=== PATIENT | female | born 1955 | race Caucasian/White ===

== ENCOUNTER 2019-03-20 16:16 | Inpatient (IN) | payer OTHER, BC ==
[~2019-03-20] VITALS: Ht 162.6 cm; Wt 83.9 kg
[2019-03-20 16:17] VITALS: BP 131/72
[2019-03-20 17:34] LABS: HEMATOCRIT 40.3 % (37.0-47.0); HEMOGLOBIN 13.8 gm/dL (12.0-15.0); MCH 30.8 pg (26.0-34.0); MCHC 34.3 g/dL (28.0-37.0); MCV 89.8 fL (80.0-100.0); RBC 4.49 mil/uL (4.20-5.00); RDW 13.9 % (10.5-14.5); WBC 8.4 thou/uL (4.0-11.0)
[2019-03-20 17:46] LABS: CALCIUM 9.8 mg/dL (8.5-10.1); CREATININE 0.9 mg/dL (0.6-1.0); POTASSIUM 4.1 mmol/L (3.5-5.1)
[2019-03-20] MEDS ORDERED: VALIUM5 MG PO (17:55)
[2019-03-20 18:36] VITALS: BP 134/74
[2019-03-20 18:53] VITALS: BP 143/68
[2019-03-20 21:29] VITALS: BP 121/68
[2019-03-21 04:10] VITALS: BP 118/64
[2019-03-21 05:57] LABS: ABSOLUTE NEUTROPHILS 6.9 thou/uL (1.4-8.2); BASOPHILS 0.5 % (0.0-2.0); HEMATOCRIT 38.6 % (37.0-47.0); LYMPHOCYTES 19.3 % (24.0-44.0); MCH 30.5 pg (26.0-34.0); MCHC 33.6 g/dL (28.0-37.0); MCV 90.8 fL (80.0-100.0); MONOCYTES 7.9 % (1.0-8.0); PLATELET COUNT 216 thou/uL (150-400); POLYS 70.3 % (36.0-66.0); RBC 4.25 mil/uL (4.20-5.00); RDW 14.2 % (10.5-14.5); WBC 9.8 thou/uL (4.0-11.0)
[2019-03-21 06:09] LABS: CALCIUM 9.3 mg/dL (8.5-10.1); CREATININE 0.8 mg/dL (0.6-1.0); MAGNESIUM 1.7 mg/dL (1.8-2.4)
[2019-03-21 07:16] VITALS: BP 104/72
[2019-03-21 15:53] VITALS: BP 127/80
[2019-03-21 20:35] VITALS: BP 112/70
[2019-03-22 00:35] VITALS: BP 149/74
[2019-03-22 04:45] VITALS: BP 115/66
[2019-03-22 05:34] LABS: HEMATOCRIT 39.4 % (37.0-47.0); HEMOGLOBIN 13.1 gm/dL (12.0-15.0); MCH 30.3 pg (26.0-34.0); MCHC 33.3 g/dL (28.0-37.0); RBC 4.34 mil/uL (4.20-5.00); RDW 13.8 % (10.5-14.5); WBC 10.6 thou/uL (4.0-11.0)
[2019-03-22 05:46] LABS: CALCIUM 9.2 mg/dL (8.5-10.1); POTASSIUM 4.1 mmol/L (3.5-5.1)
[2019-03-22 08:05] VITALS: BP 117/66
[2019-03-22] MEDS ORDERED: VENTOLIN HFA 1818 GM INH (09:53)
[2019-03-22 09:57] VITALS: BP 117/66
--- NOTE | 2019-03-22 18:58 | P ---
[facility] [place] [address] PROCEDURE REPORT Name: TRINA HAMEED Room #: 208-P [facility] IN M.R.#: [id number] Admission: 03/20/19 Attend Phys: Carlitos Black MD Discharge: 03/22/19 Date of : 59 Report #: [id number] THIS REPORT FOR: //name// CC: Carlitos CHANEY Physician staff DATE OF SERVICE: 03/21/2019 TYPE OF PROCEDURE: Diagnostic bronchoscopy and removal of foreign body. POSTOPERATIVE DIAGNOSES: 1. Foreign body in the right main stem bronchus intermedius. 2. Moderate airway edema and erythema due to foreign body aspiration. 3. 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 DESCRIPTION OF PROCEDURE: The patient is a 63-year-old white female who presents to the ED with an apparent aspiration of a foreign body. She was eating carrots. She has had trouble with cough and dyspnea. A diagnostic bronchoscopy was performed. Following obtained consent and risks and benefits being explained to the patient, which include infection, bleeding, pneumothorax, procedure performed in the OR. The patient was given sedation through anesthesia. A flexible fiberoptic bronchoscope was then introduced orally. The epiglottis and vocal cords were normal. I have given her approximately 5 mL of 2% lidocaine. 1% lidocaine was then used in the airways. Then, the bronchoscope was introduced through the vocal cord without difficulty. The trachea was normal, oma was normal. Left main stem bronchus, left upper lobe and left lower lobe was normal. Right mainstem bronchus, right upper lobe was normal. At the bronchus intermedius, passed the right upper lobe, what appears to be yellowish orange appearing foreign body obstructing the bronchus intermedius. Biopsy forceps was then utilized to retrieve the foreign body. 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 At one point, I was able to grasp the foreign body with a biceps forceps. However, this became dislodged in the mid trachea. The foreign body then migrated down to the distal left mainstem bronchus. We electively intubated the patient to control the bleeding. Following intubation, was then introduced through the ET tube. The foreign body was again located at the distal left mainstem bronchus. Biopsy forceps was again used. After several attempts, I was able to grasp the foreign body with a biceps [address] [address] PROCEDURE REPORT Name: HAMEEDTRINADORINDA GRAJEDA Room #: 208-P [facility] IN .R.#: [id number] Admission: 03/20/19 Attend Phys: Carlitos Black MD Discharge: 03/22/19 Date of : 59 Report #: [id number] forceps. We then withdrew the foreign body away from the airway. In the middle of the ET tube, the foreign body appeared to have dislodged from the biopsy forceps. I was able to locate the foreign body in the distal two-thirds of the ET tube. The patient was given short acting anesthesia and sedation. Knowing this, we then withdrew the ET tube. Oral airway was placed per anesthesia. At the distal third of the ET tube, there appears to be the foreign body. The foreign body was then retrieved with a catheter and will be sent for pathology. I then repeated bronchoscopy. The rest of the airways appears to be clear of any foreign body. There is [id number] airway edema and erythema involving the distal bronchus intermedius with moderate clear secretions seen. There is minimal bleeding involving the distal left mainstem bronchus. Otherwise, no active bleeding was noted. Vital signs throughout the procedure were within normal range. Saturations were normal. <ELECTRONICALLY SIGNED> By: Jacob Mullen MD 03/22/19 1858 [id number] Jacob Mullen MD /nt
--- NOTE | 2019-03-23 09:07 | PATH ---
[facility] [address] [place] [address] PATHOLOGY RPT PROCEDURE Name: TRINA HAMEED Room #: 208-P [facility] IN M.R.#: [id number] Admission: 03/20/19 Date of : 59 Discharge: 03/22/19 Report #: [id number] Path Case #: [id number] [facility] Accession Number: [id number] . 01 Material submitted: . bronchus - LLL BRONCH FORIEGN BODY. Modifiers: left, lower lobe . 01 Clinical history: . LL foreign body Aspirated carrot Dr requested to be sent to lab . 02 Diagnosis: Foreign body, lung, left lower lobe, removal (gross examination only): - Gross examination compatible with orange vegetable matter. . (MAP:mm; 03/22/2019) QL/03/22/2019 . 02 Electronically signed: . Sagar Osborne MD, Pathologist NPI- [id number] . 01 Gross description: . The specimen is received in formalin labeled "Thierno Tejada, biopsy (foreign body) LLL". The specimen source is listed on the requisition as "bronch". Received are multiple fragments of orange soft material with scant attached edmonds-brown mucus measuring 1.4 x 0.9 x 0.7 cm in aggregate dimensions and ranging from 0.2 to 1.1 cm in maximum dimension. Soft tissue is not identified grossly. Sectioning through the largest segment reveals homogenous soft orange cut surfaces. Gross photographs are taken. Tissue is not submitted. (DAC; 03/22/2019) XDC/XDC . 02 Pathologist provided ICD-10: T17.920A . 02 CPT . 653953 Specimen Comment: A courtesy copy of this report has been sent to Specimen Comment: [phone], . Specimen Comment: Report sent to / DR ZAIDI Performed at: [address] [facility] [id number] MD Rajesh Arreguin MD Phone: [phone] Performed at: 02 [place] [address] PATHOLOGY RPT PROCEDURE Name: TRINA HAMEED Room #: 208-P [facility] IN M.R.#: [id number] Admission: 03/20/19 Date of : 59 Discharge: 03/22/19 Report #: [id number] Path Case #: [id number] [facility] [address], [place], [place] [id number] MD Trina Lujan MD Phone: [phone]
--- NOTE | 2019-03-25 15:49 | HC ---
[facility] [place] [address] CONSULTATION Name: TRINA HAEMED Room #: 208-P [facility] IN M.R.#: [id number] Admission: 03/20/19 Attend Phys: Carlitos Black MD Discharge: 03/22/19 Date of : 59 Report #: [id number] THIS REPORT FOR: //name// CC: Carlitos CHANEY Physician staff DATE OF SERVICE: 03/22/2019 PULMONARY CONSULTATION REFERRAL PHYSICIAN: Dr. Cordero. REASON FOR REFERRAL: Aspiration of foreign body. HISTORY OF PRESENT ILLNESS: The patient is a 63-year-old white female who presents to the ED with apparent aspiration of a foreign body. A pulmonary consultation was requested. The patient has multiple sclerosis for number of years. She has been followed by Neurology. Over the years, she has been getting slightly weak over time. She was eating carrots on the day of presentation when she apparently inhaled a part of a carrot. Ever since then, she developed dyspnea along with moderate paroxysmal cough. For that reason, she presented to the ED. Chest x-ray shows mild interstitial infiltrates in the right lower lobe. CT chest shows possible obstruction involving the bronchus intermedius. Otherwise, no other pathology. No other significant findings were noted. PAST MEDICAL HISTORY: As mentioned above, long history of multiple sclerosis, history of chronic cough. PAST SURGICAL HISTORY: Negative. ALLERGIES: None. HOME MEDICATIONS: Valium 5 mg p.o. at bedtime. FAMILY HISTORY: Noncontributory. SOCIAL HISTORY: She denies any tobacco or alcohol use. She is . REVIEW OF SYSTEMS: As mentioned above is notable for chronic cough for a number of years. Otherwise, 10-point system review negative. [facility] [address] [place] [address] CONSULTATION Name: TRINA HAMEED NICCI Room #: 208-P [facility] IN .R.#: [id number] Admission: 03/20/19 Attend Phys: Carlitos Black MD Discharge: 03/22/19 Date of : 59 Report #: [id number] PHYSICAL EXAMINATION: GENERAL: She is awake, alert, in no distress. VITAL SIGNS: Temperature is 98.3 degrees Fahrenheit, pulse is 80, respiratory rate is 20, blood pressure 140/68 mmHg and saturation is 96%. HEENT: Normocephalic, atraumatic. NECK: Supple, without any lymphadenopathy or thyromegaly. CHEST: Breath sounds are good bilaterally without any rales or wheezes. CARDIOVASCULAR: Normal S1, S2. No murmurs or gallop. There is no JVD. There is no carotid bruit. Pulses are 2+/4+ bilaterally. ABDOMEN: Soft, nontender, no organomegaly or masses felt. GENITOURINARY: Deferred. RECTAL: Deferred. EXTREMITIES: There is no edema, cyanosis or clubbing. LABORATORY DATA: Chest x-ray and chest CT as mentioned above. Electrolytes are normal. CBC is unremarkable. IMPRESSION: 1. Apparent aspiration of a foreign body. The patient was consuming carrots at that time. There appears to be obstruction involving the bronchus intermedius. 2. Chronic cough, etiology undetermined. We would recommend outpatient followup. 3. Multiple sclerosis. RECOMMENDATION: We will proceed with diagnostic bronchoscopy later today. The patient has been on n.p.o. In terms of chronic cough, the patient will benefit from outpatient pulmonary evaluation. Thank you for this consultation. <ELECTRONICALLY SIGNED> By: Jacob Mullen MD 03/25/19 1549 [id number] Jacob Mullen MD /nt
== END 2019-03-22 11:21 | disposition home or self-care (01) | DRG 206 ==
LOC: ER 16:16 → 2N 17:26 → EROBS 17:26 → 2N 19:51 → ENTRNSPT 03-22 11:14 → EDTRNSPTSTS 03-22 11:16 → 2N 03-22 11:21
PROVIDERS: Emergency Medicine; Hospitalist; Nurse Practitioner; ADMIT Internal Medicine
PROC: 0BC38ZZ Extirpation of Matter from Right Main Bronchus, Via Natural or Artificial Opening Endoscopic (ICD-10-PCS; principal; 2019-03-21)
DX: T17.920A Food in respiratory tract, part unspecified causing asphyxiation, initial encounter (principal); G35 Multiple sclerosis; J98.09 Other diseases of bronchus, not elsewhere classified; R05 Cough; K76.0 Fatty (change of) liver, not elsewhere classified; Z79.899 Other long term (current) drug therapy; X58.XXXA Exposure to other specified factors, initial encounter; Y93.89 Activity, other specified; Y92.89 Other specified places as the place of occurrence of the external cause; Y99.8 Other external cause status
CPT/HCPCS: 10081; 10194; 62110; 62900; 70005